=== PATIENT | female | born 1980 | race Caucasian/White ===

== ENCOUNTER 2018-09-12 11:17 | Emergency (ER) | payer SELFPAY ==
[2018-09-12 11:26] VITALS: BP 107/77; PULSE 77; TEMP 98.1; BMI 29.2
[2018-09-12] MEDS ORDERED: methylPREDNISolone NA SUCC 125 MG/2 ML VIAL IVPB ONE (11:56)
[2018-09-12] MEDS ORDERED: FAMOTIDINE 20 MG/50 ML IVPB 20 MG/50 ML MG IVPB ONE ×2 (11:56→12:14)
[2018-09-12] MEDS ORDERED: methylPREDNISolone NA SUCC 125 MG/2 ML VIAL ONE (11:59)
--- NOTE | 2018-09-12 11:59 | PDOC ---
History of Present Illness - General Chief Complaint: Rash Stated Complaint: FACIAL RASH Time Seen by Provider: 09/12/18 11:48 - History of Present Illness Initial Comments: 09/12/18 11:57 38-year-old female presents for evaluation of a rash. She states she used a new facial cream 7 days ago and developed a rash on her face she is to cream 2 more times and the rash got worse. She presents to the emergency room for further evaluation and treatment. Past History - Past Medical History Allergies/Adverse Reactions: Allergies Allergy/AdvReac Type Severity Reaction Status Date / Time No Known Allergies Allergy Verified 09/12/18 11:21 Home Medications: Ambulatory Orders Methylprednisolone [Medrol Dose Luis] 4 mg PO ASDIR #21 tablet 09/12/18 - Suicide/Smoking/Psychosocial Hx Smoking History: Never smoked Hx Alcohol Use: No Drug/Substance Use Hx: No Review of Systems - Review of Systems Constitutional: Yes: Fever Integumentary: Yes: See HPI, Flushing, Pruritus, Rash *Physical Exam - Vital Signs Last Vital Signs Temp Pulse Resp BP Pulse Ox 98.1 F 77 18 107/77 99 09/12/18 11:21 09/12/18 11:21 09/12/18 11:21 09/12/18 11:21 09/12/18 11:21 - Physical Exam Comments: 09/12/18 11:57 HEAD: NC/AT EYES: Conjuntiva clear Ears: Canals and TM's normal NOSE: No d/c THROAT: Moist mucous membrances, oral pharanx clear, uvula midline NECK: Supple without adenopathy CARDIAC: S1 S2 LUNGS: CTA Full and Equal breath sounds ABDOMEN: Soft NT ND MS: Full ROM in all joints without edema NEUROLOGIC: No gross sensory or motor deficits, NVID SKIN: Normal color and temperature the face is covered and erythema and raised wheal. There are not specific individual wheals however there is just swelling about the entire face with erythema scaling mild induration. There are well demarcated borders around face with erythema stops and normal skin begins. These areas encompassed the forehead nose periauricular and periorbital areas. There is tenderness. And mild induration. Medical Decision Making - Medical Decision Making 09/12/18 11:59 This is an ALLERGIC contact dermatitis. I do not believe this is cellulitis. I will treat her with steroids Pepcid and Benadryl and reevaluate her. *DC/Admit/Observation/Transfer Diagnosis at time of Disposition: Contact dermatitis - Discharge Dispostion Disposition: HOME Condition at time of disposition: Improved Decision to Admit order: No - Prescriptions Prescriptions: Methylprednisolone [Medrol Dose Luis] 4 mg PO ASDIR #21 tablet - Referrals Referrals: Yvette Sheth MD [Staff Physician] - - Patient Instructions Printed Discharge Instructions: Contact Dermatitis, DI for Contact Dermatitis Additional Instructions: Return to the emergency room for worsening symptoms. Follow-up with dermatology in 1-2 days for further evaluation and treatment options. Please take the Medrol Dosepak as directed start that medication tomorrow. You may take over-the -counter Benadryl as directed for itching. Be sure to follow-up with dermatology without fail within the next 1-2 days. - Post Discharge Activity
== END 2018-09-12 13:11 | disposition home or self-care (01) ==
LOC: JERFT 11:17
PROC: 3E033GC Introduction of Other Therapeutic Substance into Peripheral Vein, Percutaneous Approach (ICD-10-PCS; principal; 2018-09-12)
PROC: 3E033GC Introduction of Other Therapeutic Substance into Peripheral Vein, Percutaneous Approach (ICD-10-PCS; 2018-09-12)
PROC: 3E0333Z Introduction of Anti-inflammatory into Peripheral Vein, Percutaneous Approach (ICD-10-PCS; 2018-09-12)
DX: L23.2 Allergic contact dermatitis due to cosmetics (principal)
CPT/HCPCS: 99281-25

== ENCOUNTER 2021-05-16 16:35 | Emergency (ER) | payer OTHER ==
[2021-05-16 17:19] VITALS: BP 119/76; PULSE 88; TEMP 98.9; BMI 24.4
[2021-05-16] MEDS ORDERED: DEXAMETHASONE SOD PHOSPHATE 10 MG/1 ML VIAL IM ONE (18:16)
[2021-05-16] MEDS ORDERED: DEXAMETHASONE SOD PHOSPHATE 10 MG/1 ML VIAL ONE (18:20)
== END 2021-05-16 19:10 | disposition home or self-care (01) ==
LOC: JER 16:35
PROC: 3E0233Z Introduction of Anti-inflammatory into Muscle, Percutaneous Approach (ICD-10-PCS; principal; 2021-05-16)
DX: R05.1 Acute cough (principal); J02.9 Acute pharyngitis, unspecified
CPT/HCPCS: 71045-TC-FY; 87651; 87804; 87807; 99284-25; C9803; J1100; U0003; U0005